=== PATIENT | female | born 1975 | race Caucasian/White ===

== ENCOUNTER 2023-01-21 12:57 | Outpatient (CLI) | payer SELFPAY ==
[2023-01-21 14:04] LABS: #Basophils 0.1 10x3/uL (0.0-0.2); #Eosinphils 0.8 10x3/uL (0.0-0.5); #Monocytes 0.5 10x3/uL (0.0-1.1); #Neutrophils 6.4 10x3/uL (1.5-8.4); %Basophils 0.9 % (0.0-2.0); %Eosinophils 8.3 % (0.0-6.0); %Lymphocytes 21.8 % (18.0-47.0); %Neutrophils 63.6 % (40.0-75.0); Hemoglobin 11.8 g/dL (12.0-15.5); Mean Corpuscular HGB CONC 31.1 g/dL (32.0-36.0); Mean Corpuscular Hemoglobin 26.7 pg (27.0-33.0); Mean Platelet Volume 10.7 fl (7.4-10.4); Platelet Count 323 10x3/uL (150-450); RBC Distribution Width 13.3 % (11.5-14.5); Red Blood Cell (RBC) Count 4.42 10x6/uL (3.90-5.03); White Blood Cell (WBC) Count 10.1 10x3/uL (3.5-10.5)
[2023-01-21 14:24] LABS: BHCG - Serum Negative (NEGATIVE); Pregs Control Background? CLEAR/WHITE (CLR/WHITE); Pregs Control Bar Appear? YES (CONTROL BAR)
[2023-01-21 14:34] LABS: ALT (SGPT) 32 U/L (8-55); AST (SGOT) 25 U/L (5-34); Albumin 4.4 g/dL (3.5-5.0); Alkaline Phosphatase 131 U/L (40-110); Anion Gap 17 mmol/L (10-20); BUN (Urea Nitrogen) 19 mg/dL (7.0-18.7); Bilirubin, Total 0.3 mg/dL (0.2-1.2); Calc. Creatinine Clearance 0 mL/min (70-130); Calcium 9.4 mg/dL (7.8-10.44); Carbon Dioxide 23 mmol/L (22-29); Chloride 106 mmol/L (98-107); Estimated GFR 94; Globulin 3.3 g/dL (2.4-3.5); Glucose 133 mg/dL (70-105); Potassium 3.9 mmol/L (3.5-5.1); Protein, Total 7.7 g/dL (6.0-8.3); Sodium 142 mmol/L (136-145)
[2023-01-21 20:29] LABS: Hemoglobin A1c 5.6 % (4.0-6.0)
== END 2023-01-21 12:58 | disposition home or self-care (01) ==
LOC: LABBT 12:57
PROVIDERS: ATTEND Specialist
DX: Z01.818 Encounter for other preprocedural examination (principal); C18.7 Malignant neoplasm of sigmoid colon
CPT/HCPCS: 71046; 80053; 83036; 84703; 85025; 93005; 93010

== ENCOUNTER 2023-01-21 13:00 | Inpatient (IN) | payer SELFPAY ==
[2023-01-21 11:17] VITALS: BMI 30.9
[2023-01-24] MEDS ORDERED: Acetaminophen 500 MG TAB ONE (10:31)
[2023-01-24] MEDS ORDERED: Ketorolac Tromethamine 30 MG/ML VIAL ONE ×2 (10:31→19:22)
[2023-01-24] MEDS ORDERED: Midazolam HCl 2 mg/2 ml Vial ONE (10:52)
[2023-01-24] MEDS ORDERED: Bupivacaine PF 0.5% 30 ML VIAL ONE (10:52)
[2023-01-24] MEDS ORDERED: fentaNYL 50 mcg/mL 1 mL Vial ONE ×5 (10:52→17:34)
[2023-01-24] MEDS ORDERED: fentaNYL PF 100 MCG/2 ML SYRINGE ONE ×3 (11:07→11:08)
[2023-01-24] MEDS ORDERED: Bupivacaine/Epinephrine 0.25% 30 ML VIAL ONE (11:29)
[2023-01-24] MEDS ORDERED: Rocuronium Bromide 10 MG/ML (10ML VIAL) ONE (11:40)
[2023-01-24] MEDS ORDERED: NEOSTIGMINE 3 MG/3 ML SYR 3 MG/3 ML SYRINGE ONE (11:40)
[2023-01-24] MEDS ORDERED: Bupivacaine HCl 0.5%/Epinephrine 1:200,000/PF 30 ml Vial ONE (11:40)
[2023-01-24] MEDS ORDERED: PROPOFOL 200 MG/20 ML VIAL ONE (11:40)
[2023-01-24] MEDS ORDERED: Ondansetron PF 4 MG/2 ML Vial ONE (11:40)
[2023-01-24] MEDS ORDERED: Dexamethasone 20 MG/5 ML VIAL ONE (11:40)
[2023-01-24] MEDS ORDERED: Glycopyrrolate 0.2 MG/ML 5 ML SYRINGE ONE (11:40)
[2023-01-24] MEDS ORDERED: PHENYLEPHRINE-NS 100 MCG/ML 10 ML SYRINGE ONE (11:40)
[2023-01-24] MEDS ORDERED: Lidocaine 1% PF 5 ML VIAL ONE (11:40)
[2023-01-24] MEDS ORDERED: cefOXitin 2 GM VIAL ONE ×2 (11:51→14:57)
[2023-01-24] MEDS ORDERED: Sodium Chloride 0.9% 100 ML ONE (11:51)
[2023-01-24] MEDS ORDERED: EPINEPHrine 1 MG/ML AMP ONE (13:21)
[2023-01-24] MEDS ORDERED: Lidocaine 1% (PF) 30 ML VIAL ONE (13:21)
[2023-01-24] MEDS ORDERED: Ondansetron HCl/PF 4 MG/2 ML Vial IVP PRN (15:40)
[2023-01-24] MEDS ORDERED: Promethazine HCl 25 MG/ML VIAL IM PRN ×2 (15:40→16:34)
[2023-01-24] MEDS ORDERED: PACU-Morphine 4MG/ML VIAL SLOW IVP PRN (15:40)
[2023-01-24] MEDS ORDERED: Promethazine HCl 25 MG/ML VIAL ONE (16:06)
[2023-01-24] MEDS ORDERED: hydrALAZINE 20 MG/ML VIAL SLOW IVP PRN (16:34)
[2023-01-24] MEDS ORDERED: Morphine 4 MG/ML VIAL SLOW IVP PRN (16:34)
[2023-01-24] MEDS ORDERED: Ipratropium/Albuterol 3 ML NEB NEB PRN (16:34)
[2023-01-24] MEDS ORDERED: Ondansetron PF 4 MG/2 ML Vial IVP PRN (16:34)
[2023-01-24] MEDS ORDERED: Morphine 2 MG/ML VIAL SLOW IVP PRN (16:34)
[2023-01-24] MEDS ORDERED: D5 1/2 NS w/20 mEq KCL 1,000 ML ONE (16:49)
[2023-01-24] MEDS: D5 1/2 NS w/20 mEq KCL 1,000 ML IV SCH ×2 (16:56→23:08)
[2023-01-24] MEDS ORDERED: Morphine 4 MG/ML VIAL ONE (18:46)
[2023-01-24] MEDS: Ketorolac Tromethamine 30 MG/ML VIAL IVP SCH ×2 (19:22→23:07)
[2023-01-24] MEDS: Famotidine 20 MG TAB PO SCH (21:54)
[2023-01-24] MEDS: Famotidine/PF 20 mg/2ml Vial SLOW IVP SCH (21:54)
[2023-01-25] MEDS: Ketorolac Tromethamine 30 MG/ML VIAL IVP SCH ×3 (05:27→17:12)
[2023-01-25 07:44] LABS: #Lymphocytes 1.2 thou/uL (1.20-3.40); #Monocytes 0.9 thou/uL (0.11-0.59); #Neutrophils 9.5 thou/uL (1.40-6.50); %Basophils 0.1 % (0.0-1.0); %Lymphocytes 10.6 % (21.0-51.0); %Monocytes 7.5 % (0.0-10.0); %Neutrophils 81.7 % (42.0-75.0); Hemoglobin 10.5 g/dL (12.0-16.0); Mean Corpuscular HGB CONC 30.9 g/dL (32.0-36.0); Mean Corpuscular Hemoglobin 26.8 pg (27.0-31.0); Mean Corpuscular Volume 86.6 fl (78.0-98.0); Platelet Count 236 10x3/uL (130-400); RBC Distribution Width 12.8 % (11.5-14.5); Red Blood Cell (RBC) Count 3.93 mill/uL (4.20-5.40); White Blood Cell (WBC) Count 11.6 10x3/uL (4.8-10.8)
[2023-01-25 08:03] LABS: Anion Gap 11 mmol/L (10-20); BUN (Urea Nitrogen) 8 mg/dL (7.0-18.7); Calc. Creatinine Clearance 116 mL/min (70-130); Calcium 8.2 mg/dL (7.8-10.44); Carbon Dioxide 22 mmol/L (22-29); Chloride 108 mmol/L (98-107); Estimated GFR 105; Glucose 143 mg/dL (70-105); Potassium 4.1 mmol/L (3.5-5.1); Sodium 137 mmol/L (136-145)
[2023-01-25] MEDS: Famotidine 20 MG TAB PO SCH ×2 (08:35→21:13)
[2023-01-25] MEDS: D5 1/2 NS w/20 mEq KCL 1,000 ML IV SCH ×2 (08:36→17:11)
[2023-01-25] MEDS: Famotidine/PF 20 mg/2ml Vial SLOW IVP SCH ×2 (08:43→21:14)
[2023-01-25] MEDS: HYDROcodone/Acetaminophen 7.5/325 mg Tablet PO PRN (21:14)
[2023-01-26] MEDS: Ketorolac Tromethamine 30 MG/ML VIAL IVP SCH ×3 (01:39→11:01)
[2023-01-26] MEDS: D5 1/2 NS w/20 mEq KCL 1,000 ML IV SCH ×2 (01:40→08:41)
[2023-01-26] MEDS: HYDROcodone/Acetaminophen 7.5/325 mg Tablet PO PRN (08:40)
[2023-01-26] MEDS: Famotidine 20 MG TAB PO SCH (08:40)
[2023-01-26] MEDS: Famotidine/PF 20 mg/2ml Vial SLOW IVP SCH (08:41)
[2023-01-26 08:52] VITALS: TEMP 98.4
[2023-01-26 12:09] VITALS: BP 132/85
== END 2023-01-26 15:08 | disposition home or self-care (01) | DRG 330 ==
LOC: SURG A 01-24 09:40
PROVIDERS: ADMIT Specialist; ATTEND Specialist
PROC: 0DTN4ZZ Resection of Sigmoid Colon, Percutaneous Endoscopic Approach (ICD-10-PCS; principal; 2023-01-24)
DX: C18.7 Malignant neoplasm of sigmoid colon (principal); R71.0 Precipitous drop in hematocrit
CPT/HCPCS: 36415; 36416; 80048; 85025; 88307; 88309; A4649; J0171; J0694; J1100; J1650; J1885; J2001; J2250; J2270; J2405; J2550; J2704; J3010; J3480; J3490; S0020; S0028